=== PATIENT | female | born 1930 | race Caucasian/White ===

== ENCOUNTER 2017-12-30 10:57 | Emergency (ER) | payer MEDICARE, OTHER ==
[~2017-12-30] VITALS: Ht 162.6 cm; Wt 68.5 kg
[~2017-12-30 10:57] MED LIST: ACETAMINOPHEN325 M1 PO; ALBUTEROL S5 MG/1 ML IH; ASPIR 8181 MG PO; ASPIRIN81 M1 PO; CALCIUM +D & M1 EAC1 PO; CALCIUM 500+D1 EACH PO; CARVEDILOL6.25 MG PO; CATAPRES-TTS 21 EACH PO; CLONIDINE HCL0.1 MG PO; COLACE100 MG PO; CYMBALTA60 MG PO; DILTIAZEM 24HR120 M1 PO; DILTIAZEM ER180 M1 PO; DOCUSATE SODIU100 MG PO; ELIQUIS PO; K DUR10 MEQ PO; KETOTIFEN FUMARA5 ML OU; LABETALOL HCL300 MG PO; LEVAQUIN500 MG PO; LOPERAMIDE2 MG PO; MAGNESIUM OXID400 MG PO; MAGOX 400400 MG PO; MECLIZINE HCL12.5 MG PO; MEDROL4 MG/DOSE- PO; MELOXICAM15 MG PO; MIRALAX17 GM PO; MUCINEX DM ER1 EACH PO; NORCO 5-325 TA1 EACH PO; NORVASC5 MG PO; OCUVITE TABLET1 EAC1 PO; PANTOPRAZOLE SO40 MG PO; PROCARDIA XL60 MG PO; VESICARE5 MG PO
--- OUTSIDE RECORDS SUMMARY | 2017-12-30 11:00 | XMS REPORT ---
Author Author [facility] Address Unknown Phone Unavailable Care Team Providers Care Business Proposal Rep Name Role Phone JORGE A ACOSTA Unavailable Unavailable Problems This patient has no known problems. Allergies, Adverse Reactions, Alerts This patient has no known allergies or adverse reactions. Medications This patient has no known medications. Results Test Description Test Time Test Comments Text Results Atomic Results Result Comments ESOPHAGRAM [place] [address] Patient Name: SHAMIKA MARIN MR #: [id number] : 1930 Age/Sex: 87/F Req #: [id number] Adm Physician: Ordered by: JORGE A ACOSTA MD Report #: [id number] Location: DX Room/Bed: Procedure: [id number] DX/ ESOPHAGRAM Exam Date: 05/21/17 Exam Time: 809 REPORT STATUS: Signed PROCEDURE: X-RAY ESOPHAGRAM COMPARISON: None. INDICATIONS: Reflux symptoms FINDINGS: The patient was given air crystals, thick barium, and thin barium to drink in upright and prone positions. Multiple images of the hypopharynx, esophagus, and proximal stomach were obtained. The esophagus is patulous with multiple tertiary, nonperistaltic contractions. No mucosal irregularity or annular lesion. Moderate sliding hiatal hernia is noted with unremarkable appearance of gastric mucosa. No gastroesophageal reflux was observed during the examination. Impression: Moderate sliding hiatal hernia. Patulous esophagus with multiple tertiary nonperistaltic contractions compatible with presbyesophagus. Dictated by: Jorge A Escobedo M.D. on 05/21/2017 at 9:07 Electronically approved by: Jorge A Escobedo M.D. on 05/21/2017 at 9: 07 Dictated By: JORGE A ESCOBEDO MD 6 Transcribed By: ANGELICA on 05/21/17906 COPY TO: JORGE A ACOSTA MD MODIFIED BA. SWALLOW [place] [address] Patient Name: SHAMIKA MARIN MR #: [id number] : 1930 Age/Sex: 87/F Req #: [id number] Adm Physician: Ordered by: JORGE A ACOSTA MD Report #: [id number] Location: DX Room/Bed: Procedure: [id number] DX/MODIFIED BA. SWALLOW Exam Date: 05/08/17 Exam Time: 1415 REPORT STATUS: Signed PROCEDURE: MODIFIED BA. SWALLOW COMPARISON: None. INDICATIONS: Aspiration. Hiatal hernia. DISCUSSION: Fluoroscopic examination was performed in conjunction with speech pathology during swallowing of a variety of thin and thick liquid consistencies. RADIATION DOSE: Total Time: 2.5 minutes Cumulative air kerma: 51.81 mGy FINDINGS: PREMATURE SPILLAGE: Over the base of the tongue: None To vallecula: None To pyriform sinus: None LARYNGEAL PENETRATION: None ASPIRATION: None RESIDUE: VALLECULA: None PYRIFORM SINUS: None PHARYNGEAL WALL: None BASE OF TONGUE: None CONCLUSION: 1. No penetration or aspiration. Please see report from speech pathology for complete details. 2. Limited view of the distal esophagus shows there is contrast retained in distal esophagus with poor passage into the stomach. Recommend esophagram for further evaluation. Dictated by: Srikanth Jett M.D. on 05/08/2017 at 17 :34 Electronically approved by: Srikanth Jett M.D. on 05/08/2017 at 17:34 Dictated By: SRIKANTH JETT MD [id number] COPY TO: JORGE A ACOSTA MD
== END 2017-12-30 12:17 | disposition home or self-care (01) ==
LOC: FSED 10:57
DX: R41.82 Altered mental status, unspecified (principal); R41.0 Disorientation, unspecified
CPT/HCPCS: 80053; 81003; 85025; 99284